=== PATIENT | male | born 1990 | race American Indian/Alaskan Native ===

== ENCOUNTER 2019-07-14 14:58 | Emergency (ER) | payer SELFPAY ==
--- NOTE | 2019-07-14 15:57 | Event Note ---
ED Screening Note Date of service: 07/14/19 Time: 15:55 ED Screening Note: 28 y o male presents with blood in urine and right flank pain today This initial assessment/diagnostic orders/clinical plan/treatment(s) is/are subject to change based on patients health status, clinical progression and re- assessment by fellow clinical providers in the ED. Further treatment and workup at subsequent clinical providers discretion. Patient/guardian urged not to elope from the ED as their condition may be serious if not clinically assessed and managed. Initial orders include: labs, ua CT?
[2019-07-14] MEDS ORDERED: HYDROcodone/ACETAMINOPHEN 5-325 MG TAB PO ONE (16:30)
[2019-07-14 17:15] LABS: Basophils % (Auto) 0.6 % (0.0-1.8); Eosinophils # (Auto) 0.1 K/mm3 (0.0-0.4); Eosinophils % (Auto) 1.6 % (0.0-4.3); Hematocrit 45.7 % (35.5-45.6); Hemoglobin 15.4 gm/dl (11.8-15.2); Lymphocytes # (Auto) 2.5 K/mm3 (1.2-5.4); Lymphocytes % (Auto) 37.7 % (13.4-35.0); Mean Corpuscular HGB Conc 34 % (32-34); Mean Corpuscular Volume 93 fl (84-94); Monocytes # (Auto) 0.7 K/mm3 (0.0-0.8); Monocytes % (Auto) 10.1 % (0.0-7.3); Platelet Count 354 K/mm3 (140-440); Red Blood Count 4.91 M/mm3 (3.65-5.03); Red Cell Distribution Width 13.1 % (13.2-15.2)
[2019-07-14 17:30] LABS: Alanine Aminotransferase 33 units/L (7-56); Albumin 4.4 g/dL (3.9-5); BUN/Creatinine Ratio 12; Blood Urea Nitrogen 12 mg/dL (9-20); Calcium 9.4 mg/dL (8.4-10.2); Hemolysis Index 5
[2019-07-14] MEDS ORDERED: MORPHINE 4 MG/1 ML INJ IV ONE (18:32)
[2019-07-14] MEDS ORDERED: SODIUM CHLORIDE 0.9% 1000 ML 1,000 ML IV ONE (18:32)
[2019-07-14] MEDS ORDERED: KETOROLAC 30 MG/1 ML INJ IV ONE (18:32)
--- NOTE | 2019-07-14 19:03 | Emergency Department Report ---
HPI - General Chief Complaint: Abdominal Pain Time Seen by Provider: 07/14/19 18:31 - HPI HPI: 28-year-old male presents to the emergency department with a complaint of some right-sided abdominal and flank pain that started earlier this afternoon. It is associated with some nausea without vomiting and the patient says that he has been urinating blood. He denies any fever, dysuria, penile discharge, constipation or diarrhea. He denies any past medical history. He has not taken anything for her symptoms prior to presentation today. ED Past Medical Hx - Past Medical History Previous Medical History?: No - Surgical History Past Surgical History?: No - Social History Smoking Status: Never Smoker Substance Use Type: None - Medications Home Medications: Home Medications Medication Instructions Recorded Confirmed Last Taken Type Ibuprofen [Motrin 800 MG tab] 800 mg PO Q8HR PRN #20 tablet 07/14/19 Unknown Rx ED Review of Systems ROS: Stated complaint: ABD PAIN Other details as noted in HPI Comment: All other systems reviewed and negative Constitutional: denies: chills, fever Eyes: denies: eye pain, vision change ENT: denies: ear pain, throat pain Respiratory: denies: cough, shortness of breath Cardiovascular: denies: chest pain, palpitations Gastrointestinal: abdominal pain. denies: vomiting Genitourinary: hematuria. denies: dysuria Musculoskeletal: denies: back pain, arthralgia Skin: denies: rash, lesions Neurological: denies: headache, weakness Physical Exam - Physical Exam Vital Signs: Vital Signs 07/14/19 15:56 Temperature 98.3 F Pulse Rate 82 Respiratory 20 Rate Blood Pressure 129/72 O2 Sat by Pulse 98 Oximetry Physical Exam: GENERAL: The patient is well-developed well-nourished. HENT: Normocephalic. Atraumatic. Patient has moist mucous membranes. EYES: Extraocular motions are intact. NECK: Supple. Trachea is midline. CHEST/LUNGS: Clear to auscultation. There is no respiratory distress noted. HEART/CARDIOVASCULAR: Regular. There is no tachycardia. There is no murmur. ABDOMEN: Abdomen is soft. Unable to reproduce abdominal or flank pain to palpation. No guarding. Patient has normal bowel sounds. There is no a bdominal distention. SKIN: Skin is warm and dry. NEURO: The patient is awake, alert, and oriented. The patient is cooperative. The patient has no focal neurologic deficits. Normal speech. MUSCULOSKELETAL: There is no tenderness or deformity. There is no evidence of acute injury. ED Course Vital Signs 07/14/19 15:56 Temperature 98.3 F Pulse Rate 82 Respiratory 20 Rate Blood Pressure 129/72 O2 Sat by Pulse 98 Oximetry ED Medical Decision Making - Lab Data Result diagrams: 07/14/19 16:31 07/14/19 16:31 - Radiology Data Radiology results: report reviewed CT ABDOMEN AND PELVIS WITHOUT IV CONTRAST INDICATION: right sided abd/flank pain. COMPARISON: None available. TECHNIQUE: All CT scans at this facility use dose modulation, automated exposure control, iterative reconstruction or weight based dosing, when appropriate, to reduce radiation dose to as low as reasonably achievable. FINDINGS: Lung Bases: No significant abnormality. Skeletal System: No acute abnormality. ABDOMEN: Liver: No significant abnormality. Gallbladder: No significant abnormality. Bile Ducts: No significant abnormality. Pancreas: No significant abnormality. Spleen: No significant abnormality. Adrenals: No si gnificant abnormality. Right Kidney: There is very mild right hydronephrosis. Left Kidney: No significant abnormality. Upper GI tract: No significant abnormality. Lymph Nodes: No significant adenopathy. Aorta: No significant abnormality. Additional Findings: No significant abnormality. PELVIS: Colon: No acute abnormality. Urinary Bladder and Distal Ureters: There is a punctate 1-2 mm stone in the very distal right ureter (coronal image 69). Appendix: No significant abnormality. Lymph Nodes: No significant adenopathy. Additional Findings: None. IMPRESSION: 1. Punctate 1-2 mm very distal right ureteral stone results in very mild right hydronephrosis. No intrarenal stones. - Medical Decision Making This patient presents with some acute right-sided abdominal and flank pain as well as some hematuria. CT confirms a small right ureteral stone that is about 1-2 mm with very mild hydronephrosis. Patient's labs have been unremarkable except for the hematuria seen on urinalysis. No UTI. Vital signs stable including being afebrile. Patient was given some pain medication and anti- inflammatories and upon reevaluation he is feeling greatly improved. He'll be discharged home to follow up with primary care and neurology. He will return to the emergency Department with any worsening of his symptoms or any acute distress. Critical care attestation.: If time is entered above; I have spent that time in minutes in the direct care of this critically ill patient, excluding procedure time. ED Disposition Clinical Impression: Kidney stone on right side, Flank pain, Hematuria Disposition: TO HOME OR SELFCARE Is pt being admited?: No Condition: Stable Instructions: Kidney Stones (ED), Flank Pain (ED) Additional Instructions: Please follow-up with your primary care physician in the next few days. I am giving you a referral for a local urologist, Dr. Dailey, to follow up regarding her kidney stones. Return to the emergency Department with any worsening of your symptoms or any acute distress. Prescriptions: Ibuprofen [Motrin 800 MG tab] 800 mg PO Q8HR PRN #20 tablet PRN Reason: Pain , Severe (7-10) Referrals: KEI DAILEY MD [Staff Physician] - 2-3 Days [facility] [Outside] - 2-3 Days Time of Disposition: 20:28
[2019-07-14 19:48] LABS: Bilirubin,Urine NEG (Negative); Blood,Urine LG (Negative); Color,Urine Yellow (Yellow); Mucus,Urine 1+ /HPF; WBC,Urine < 1.0 /HPF (0.0-6.0)
[2019-07-14 19:52] VITALS: BP 117/51
[2019-07-14 19:52] LABS: RBC,Urine > 182.0 /HPF (0.0-6.0)
--- NOTE | 2019-07-14 20:19 | Cat Scan Report ---
CT ABDOMEN AND PELVIS WITHOUT IV CONTRAST INDICATION: right sided abd/flank pain. COMPARISON: None available. TECHNIQUE: All CT scans at this facility use dose modulation, automated exposure control, iterative reconstructi on or weight based dosing, when appropriate, to reduce radiation dose to as low as reasonably achieva ble. FINDINGS: Lung Bases: No significant abnormality. Skeletal System: No acute abnormality. ABDOMEN: Liver: No significant abnormality. Gallbladder: No significant abnormality. Bile Ducts: No significant abnormality. Pancreas: No significant abnormality. Spleen: No significant abnormality. Adrenals: No significant abnormality. Right Kidney: There is very mild right hydronephrosis. Left Kidney: No significant abnormality. Upper GI tract: No significant abnormality. Lymph Nodes: No significant adenopathy. Aorta: No significant abnormality. Additional Findings: No significant abnormality. PELVIS: Colon: No acute abnormality. Urinary Bladder and Distal Ureters: There is a punctate 1-2 mm stone in the very distal right ureter (coronal image 69). Appendix: No significant abnormality. Lymph Nodes: No significant adenopathy. Additional Findings: None. IMPRESSION: 1. Punctate 1-2 mm very distal right ureteral stone results in very mild right hydronephrosis. No in trarenal stones. Signer Name: Jb Santos MD Signed: 07/14/2019 8:15 PM Workstation Name: [id number]
== END 2019-07-14 21:05 | disposition home or self-care (01) ==
LOC: ED 14:58
DX: N20.0 Calculus of kidney (principal); Z79.1 Long term (current) use of non-steroidal anti-inflammatories (NSAID)
CPT/HCPCS: 36415; 74176; 80053; 81001; 85025; 96374; 96375; 99283; J1885; J2270; J7030

== ENCOUNTER 2020-06-04 18:40 | Emergency (ER) | payer SELFPAY ==
[2020-06-04] MEDS ORDERED: ACETAMINOPHEN 500 MG TAB PO STA (20:32)
[2020-06-04] MEDS ORDERED: SODIUM CHLORIDE 0.9% 500 ML 500 ML IV ONE (20:32)
[2020-06-04 20:35] VITALS: BP 150/77
[2020-06-04 21:05] LABS: Basophils # (Auto) 0.1 K/mm3 (0.0-0.1); Basophils % (Auto) 0.6 % (0.0-1.8); Eosinophils % (Auto) 0.1 % (0.0-4.3); Hematocrit 48.4 % (35.5-45.6); Hemoglobin 16.3 gm/dl (11.8-15.2); Lymphocytes # (Auto) 1.1 K/mm3 (1.2-5.4); Lymphocytes % (Auto) 8.5 % (13.4-35.0); Mean Corpuscular HGB Conc 34 % (32-34); Mean Corpuscular Volume 93 fl (84-94); Monocytes # (Auto) 1.2 K/mm3 (0.0-0.8); Platelet Count 322 K/mm3 (140-440); Red Blood Count 5.22 M/mm3 (3.65-5.03); Red Cell Distribution Width 13.4 % (13.2-15.2)
--- NOTE | 2020-06-04 21:14 | XRay Report ---
CHEST 2 VIEWS INDICATION / CLINICAL INFORMATION: Chest pain. COMPARISON: None available. FINDINGS: SUPPORT DEVICES: None. HEART / MEDIASTINUM: No significant abnormality. LUNGS / PLEURA: No significant pulmonary or pleural abnormality. No pneumothorax. ADDITIONAL FINDINGS: No significant additional findings. IMPRESSION: No acute cardiopulmonary abnormality. Signer Name: Ralf Beavers MD Signed: 06/04/2020 9:10 PM Workstation Name: [id number]
[2020-06-04 21:17] LABS: INR 0.95 (0.87-1.13)
[2020-06-04 21:21] LABS: Alanine Aminotransferase 28 units/L (7-56); Albumin 4.6 g/dL (3.9-5); BUN/Creatinine Ratio 11; Blood Urea Nitrogen 11 mg/dL (9-20); Calcium 9.8 mg/dL (8.4-10.2); Hemolysis Index 49
[2020-06-04 22:03] LABS: Bilirubin,Urine NEG (Negative); Blood,Urine NEG (Negative); Color,Urine Yellow (Yellow); Mucus,Urine 1+ /HPF
== END 2020-06-04 23:35 | disposition left against medical advice (07) ==
LOC: ED 18:40
DX: J02.9 Acute pharyngitis, unspecified (principal); Z53.21 Procedure and treatment not carried out due to patient leaving prior to being seen by health care provider
CPT/HCPCS: 36415; 71046; 80053; 81001; 82140; 82805; 85025; 85610; 87040; 87086; 93005